=== PATIENT | male | born 1990 | race Caucasian/White ===

== ENCOUNTER 2019-06-18 15:54 | Emergency (ER) | payer MEDICAID, SELFPAY ==
[2019-06-18 15:57] VITALS: BP 124/99; PULSE 127; RESP 18; TEMP 36.8; O2SAT 90; BMI 27.9
--- NOTE | 2019-06-18 16:15 | ED.VIS.GEN ---
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 Patient states his symptoms began about 5 days ago. He states that he just had some myalgias and arthralgias. Shortly thereafter, he began to have cough without productive sputum. He is also had nausea, vomiting, diarrhea. He does admit to chills and myalgias. States he is otherwise been in his normal state of health. He has no history of immunosuppression. He does not smoke. 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 Surgical History: noncontributory Smoking Status: Current every day smoker Review of Systems General: Reports: Chills, Fever Eyes: Denies: Visual changes - bilaterally, Diplopia ENT: Denies: Rhinorrhea, Sore throat Cardiovascular: Denies: Chest pain, Palpitations Respiratory: Reports: Cough Gastrointestinal: Reports: Nausea, Vomiting, Diarrhea Genitourinary: Denies: Dysuria, Hematuria, Frequency Musculoskeletal: Reports: Myalgias, Arthralgias Skin: Denies: Rash, Wounds Neurological: Denies: Headache, Weakness, Numbness Physical Exam Vital Signs/Narrative: Vital Signs Temp Pulse Resp BP Pulse Ox 06/18/19 15:57 98.3 F 127 H 18 124/99 H 90 Inital Vital Signs reviewed: Yes General: Well nourished, Well developed, No Acute Distress Head: Normocephalic, Atraumatic Eyes: Perrl, EOMI ENT: Moist mucous membranes, No rhinorrhea Neck: Supple, Nontender Cardiovascular: Regular rate, Regular rhythm, No murmurs Respiratory: No distress, CTA bilaterally, Chest nontender Abdomen: Soft, Nontender, Nondistended, Normal bowel sounds Back: Nontender, Normal Inspection Extremities: Nontender, No edema Skin: Normal color, No rash Neurological: Alert, Oriented x3, Cranial nerves II-XII grossly intact, Normal Strength, Normal Sensation Psychological: Normal affect, Normal Mood Diagnostic/Tx/Re-eval Clinical Impression(s) from Imaging Studies Chest X-Ray 06/18/19 16:50 IMPRESSION: Negative chest radiograph. Electronically Signed: Glenroy Alegre, at 17:02 EDT Tel , Service support , Abnormal Lab Results 06/18/19 06/18/19 16:20 16:20 WBC 6.7 RBC 4.71 Hgb 15.7 Hct 45.3 MCV 96.2 H MCH 33.3 H MCHC 34.7 RDW Std Deviation 48.1 H RDW Coeff of Sharri 13.5 Plt Count 266 MPV 8.7 Immature Gran % (Auto) 0.400 Neut % (Auto) 53.9 Lymph % (Auto) 36.8 [place] % (Auto) 7.2 Eos % (Auto) 1.3 Baso % (Auto) 0.4 Absolute Neuts (auto) 3.6 Absolute Lymphs (auto) 2.46 Nucleated RBC % 0 Sodium 144 Potassium 4.0 Chloride 111 H Carbon Dioxide 23.0 Anion Gap 10 BUN 15 Creatinine 0.85 Estim Creat Clear Calc 131.21 Est GFR (MDRD) Af Amer 136 Est GFR (MDRD) Non-Af 112 BUN/Creatinine Ratio 17.6 Glucose 110 H Calcium 8.6 Total Bilirubin 0.20 AST 44 H ALT 83 H Alkaline Phosphatase 128 H Troponin I < 0.015 Total Protein 7.7 Albumin 3.6 Globulin 4.1 Albumin/Globulin Ratio 0.9 - Medical Decision Making The patient is a 29-year-old male with prior medical history for myocardial infarction status post amphetamine abuse. He presents to the emergency department cough, low-grade fever, chills, vomiting and diarrhea. His symptoms do seem viral in nature. He did have a documented pulse ox of 89, but when the patient talks, his pulse ox goes to 97. He has no focal change in lung sounds. Influenza was obtained was negative. The patient had a chest x-ray which shows no evidence of infiltrative process. Labs are unremarkable. With fluids and antiemetics is feeling improved. He said the symptoms for 5 days. He is a normal EKG, normal cardiac enzymes, and unremarkable work-up. He is not requiring supplemental oxygen. He is outside the window for treatment. At this point, given that he is safe for outpatient therapy. He was counseled on concerning symptoms and reasons to return. He will be discharged home. Impression 1. Viral illness ED Disposition - Plan for ED Patient: Instructions: INFLUENZA (Adult) Prescriptions: Ondansetron [Zofran Odt] 4 mg PO Q8H PRN PRN #10 tab PRN Reason: Nausea Prescription Printed Referrals: [facility] Doctor,Out of [NON-STAFF] -
--- NOTE | 2019-06-18 16:30 | EKG12_ITS ---
Test Reason : SOB Blood Pressure : / mmHG Vent. Rate : 114 BPM Atrial Rate : 114 BPM P-R Int : 134 ms QRS Dur : 086 ms QT Int : 334 ms P-R-T Axes : 044 -04 037 degrees QTc Int : 460 ms Sinus tachycardia Minimal voltage criteria for LVH, may be normal variant Borderline ECG Confirmed by XANDER LANDEROS, RODERICK ([id number]), commercial production editor HERVE FUNEZ ([id number]) on 06/25/2019 11:10:07 AM Referred By: ERICK Confirmed By:ZOË TERRELL MD
[2019-06-18 16:36] LABS: Absolute Lymphocyte Count 2.46 X10^3/uL (0.83-4.51); Absolute Neutrophil Count 3.6 X10^3/uL (2.0-7.7); Basophil# 0.03 X10^3/uL; Basophil% 0.4 % (0-1); Eosinophil# 0.09 X10^3/uL; Eosinophils% 1.3 % (0-5); Hematocrit 45.3 % (40-54); Hemoglobin 15.7 g/dL (13.0-16.5); Lymphocyte # 2.46 X10^3/ul (4.0); Lymphocyte % 36.8 % (19-41); Mean Corp Hgb Conc 34.7 g/dL (32-36); Mean Corpuscular Hgb 33.3 pg (27.0-32.0); Mean Corpuscular Volume 96.2 fL (80-94); Mean Platelet Vol. 8.7 fl (6.2-12.0); Monocyte# 0.48 X10^3/uL; Monocyte% 7.2 % (0-10); NRBC Flagged by Analyzer 0 % (0-5); Neutrophil % 53.9 % (47-70); Platelet Count 266 K/mm3 (150-450); RBC Distribution Width CV 13.5 % (11.6-14.6); RBC Distribution Width SD 48.1 fl (35.1-43.9); Red Blood Count 4.71 M/mm3 (4.6-6.2); White Blood Count 6.7 K/mm3 (4.4-11.0)
[2019-06-18] MEDS: 0.9% Normal Saline 1,000 ML 1000 ML IV (16:45)
[2019-06-18] MEDS: Ondansetron 4 MG/2 ML Vial IV (16:45)
--- NOTE | 2019-06-18 16:50 | RAD_ITS ---
STUDY: X-RAY CHEST REASON FOR EXAM: Male, 29 years old. Cough, congestion and fever. TECHNIQUE: PA and lateral COMPARISON: None. FINDINGS: No apparent pneumothorax, pneumonia, pleural effusion, or edema. Cardiac silhouette, stacy and mediastinal contours are within normal limits. No acute osseous abnormality. No evidence of free air under the diaphragm. RAD/Chest PA and Lateral IMPRESSION: Negative chest radiograph. Electronically Signed: Glenroy Alegre, at 17:02 EDT Tel , Service support ,
[2019-06-18 16:51] LABS: BUN 15 mg/dL (7-18); Creatinine, Serum 0.85 mg/dL (0.70-1.30); EST Glomerular Filtration Rate 112 mL/min (>60); Estimated Creatinine Clearance 131.21 ml/min; Glucose 110 mg/dL (74-106)
[2019-06-18 16:52] LABS: ALB/GLOB Ratio 0.9 RATIO (0.9-2.4); AST(SGOT) 44 U/L (15-37); Alanine Aminotransfer ALT/SGPT 83 U/L (16-61); Albumin, Serum 3.6 g/dL (3.2-5.0); Alkaline Phosphatase 128 U/L (45-117); Anion Gap 10 (5-15); BUN/Creat Ratio 17.6 RATIO (10-20); Calcium,Total 8.6 mg/dL (8.5-10.1); Chloride 111 mmol/L (98-107); Est Glom Filt Rate - Afr Amer 136 mL/min (>60); Globulin 4.1 g/dL (2.2-4.2); Protein, Total 7.7 g/dL (6.4-8.2); Sodium Level 144 mmol/L (136-145)
[2019-06-18 17:17] VITALS: BP 117/86; PULSE 106; RESP 18; TEMP 37.1; O2SAT 91
[2019-06-18 17:59] VITALS: BP 110/84; PULSE 120; RESP 16; TEMP 37.1; O2SAT 94; O2SAT 99
== END 2019-06-18 18:08 | disposition home or self-care (01) ==
LOC: ED 16:43
PROVIDERS: Emergency Provider Emergency Medicine
DX: B34.9 Viral infection, unspecified (principal); I25.2 Old myocardial infarction
CPT/HCPCS: 71046; 80053; 84484; 85025; 87804; 93005; 96361; 96374; 99285; J7030; A4216; J2405